=== PATIENT | male | born 1970 | race African-American/Black ===

== ENCOUNTER 2019-11-23 19:16 | Emergency (ER) | payer MEDICAID ==
[~2019-11-23] VITALS: Ht 172.7 cm; Wt 77.1 kg
[2019-11-23] MEDS ORDERED: ACETAMINOPHEN ES 500 MG TABLET ONE (20:00)
[2019-11-23] MEDS ORDERED: diphenhydrAMINE HCL 50 MG/ML VIAL ONE (20:00)
--- NOTE | 2019-11-23 20:02 | NUR ---
covid swab sample collected and sent to lab.
[2019-11-23] MEDS: diphenhydrAMINE HCL 50 MG/ML VIAL IV ONE (20:06)
[2019-11-23] MEDS: ACETAMINOPHEN ES 500 MG TABLET PO ONE (20:06)
--- NOTE | 2019-11-23 20:09 | NUR ---
BIBS FROM HOME TO ER BED 6. AAOX4. NOT IN RESP DISTRESS, BREATHING EVEN AND UNLABORED. AMBULATORY. CAME IN FOR FEELING SICK - DESCRIBED HAVING MIGRAINE HEADACHE, GEN WEAKNESS, NAUSEA AND POOR APPETITE X 2 DAYS. NO NEURO DEFICIT NOTED. MD WAS AT THE BEDSIDE FOR EVAL. ORDERS RECEIVED NOTED AND CARRIED OUT. IV LINE OBTAINED ON L HAND 18G. BLOOD DRAWN AND GIVEN TO [facility] AT BEDSIDE. MEDICATED ORDERED. LIGHTS CLOSED TO PREVENT AGGREVATING HIS HEADACHE. WILL CONTINUE TO MONITOR
[2019-11-23 20:12] LABS: BASOPHILS % (AUTO) 0.7 % (0.0-2.0); EOSINOPHILS % (AUTO) 1.6 % (0.0-6.0); HEMATOCRIT 39 % (39-51); HEMOGLOBIN 12.8 g/dL (13.5-17.5); LYMPHOCYTES % (AUTO) 26.8 % (20.0-44.0); MEAN CORPUSCULAR HGB CONC 33 g/dl (31.0-36.0); MEAN CORPUSCULAR VOLUME 82 fL (80-96); MONOCYTES # (AUTO) 0.3 /CMM (0.1-1.30); MONOCYTES % (AUTO) 8.3 % (2.0-12.0); NEUTROPHILS # (AUTO) 2.3 /CMM (1.8-8.9); NEUTROPHILS % (AUTO) 62.6 % (43.0-81.0); PLATELET COUNT (AUTO) 252 /CMM (150-450); RED BLOOD CELL COUNT(AUTO) 4.77 MIL/uL (4.5-6.0); WHITE BLOOD COUNT (AUTO) 3.7 K/uL (4.3-11.0)
--- NOTE | 2019-11-23 20:12 | NUR ---
XRAY AT BEDSIDE
[2019-11-23 20:26] LABS: ALBUMIN 3.9 g/dL (3.4-5.0); BILIRUBIN,TOTAL 0.4 mg/dL (0.2-1.0); CALCIUM, SERUM 9.3 mg/dL (8.5-10.1); CREATININE 1.6 mg/dL (0.6-1.3); TOTAL PROTEIN, SERUM 7.6 g/dL (6.4-8.2)
--- NOTE | 2019-11-23 21:29 | NUR ---
PER REQUEST OF MD CONTINUE WITH CAT SCAN ON PATIENT, ATTEMPTED TO DELAY EXAM IN ORDER TO WAIT FOR TERMINAL CLEANING OF CT2 AFTER POSITIVE COVID PATIENT WAS SCANNED.
--- NOTE | 2019-11-23 21:33 | NUR ---
PT TO CT ON ENRIQUE
--- NOTE | 2019-11-23 21:33 | NUR ---
PATIENT IS TAKEN TO CT VIA GURNEY BY MOO HORNE.
--- NOTE | 2019-11-23 21:49 | NUR ---
LAB CALLED REGARDING COVID NEGATIVE RESULT.
--- NOTE | 2019-11-23 22:52 | NUR ---
Patient discharged to home in stable condition. Written and verbal after care instructions given. Patient verbalizes understanding of instruction.IV removed. Catheter intact and site benign. Pressure and 4x4 applied to site. No bleeding noted. Pt ambulatory with a steady gait
[2019-11-23 22:53] VITALS: BP 132/72
== END 2019-11-23 22:53 | disposition home or self-care (01) ==
LOC: ER 19:23
DX: B34.9 Viral infection, unspecified (principal); R05 Cough; R11.0 Nausea; R51 Headache; Z20.828 Contact with and (suspected) exposure to other viral communicable diseases; Z86.69 Personal history of other diseases of the nervous system and sense organs
CPT/HCPCS: 36415; 71045; 74176; 80053; 85025; 87426; 96374; 99285; C9803; J1200